=== PATIENT | female | born 1960 | race Caucasian/White ===

== ENCOUNTER 2017-07-29 11:54 | Emergency (ER) | payer OTHER ==
--- NOTE | 2017-07-29 14:53 | UC ---
Back Pain HPI - HPI Summary HPI Summary: Pain in R flank starting 5 days ago. Has tried massage, stretches, heat without relief. Denies hx of kidney stones or urinary symptoms. No recent injury, no prior surgery. - History of Current Complaint Chief Complaint: UCBackPain Stated Complaint: PAIN IN MIDDLE OF BACK Time Seen by Provider: 07/29/17 14:32 Hx Obtained From: Patient ?: No Onset/Duration: Gradual Onset, Lasting Days Timing: Constant Severity Initially: Moderate Severity Currently: Moderate Back Pain: Is Discrete @ Character: Sharp, Dull, Aching Aggravating Factor(s): Movement, Cough Alleviating Factor(s): Rest, Position Associated Signs And Symptoms: Positive: Negative - Allergies/Home Medications Allergies/Adverse Reactions: Allergies Allergy/AdvReac Type Severity Reaction Status Date / Time Bee Venom Allergy Severe Anaphylatic Verified 07/29/17 12:16 Sulfa Drugs AdvReac Intermediate Rash & Verified 07/29/17 12:16 Hives Grasses & Trees Allergy Intermediate Respiratory Uncoded 07/29/17 12:16 Congestion Raw Apples AdvReac Intermediate Laryngeal Uncoded 07/29/17 12:16 Edema Wheat AdvReac Intermediate Rash & Uncoded 07/29/17 12:16 Hives Home Medications: Home Medications FLUoxetine CAP* [Prozac CAP*] 1 cap PO DAILY 07/29/17 [History Confirmed ] Venlafaxine CAP (NF) [Effexor CAP (NF)] 07/29/17 [History] PMH/Surg Hx/FS Hx/Imm Hx Endocrine History: Diabetes Other Endocrine History: obesity Cardiovascular History: Hypertension Other GI/ History: lap band - Surgical History Surgical History: Yes Surgery Procedure, Year, and Place: D&C in 1995 and 2006; [place] Teeth Removed; Nodule removed from left clavicle (Benign) - Family History Known Family History: Positive: None - Social History Lives: With Family Alcohol Use: Occasionally Substance Use Type: None Smoking Status (MU): Never Smoked Tobacco - Immunization History Most Recent Influenza Vaccination: 2017 Review of Systems Constitutional: Negative Skin: Negative Eyes: Negative ENT: Negative Respiratory: Negative Cardiovascular: Negative Gastrointestinal: Negative Genitourinary: Negative Motor: Negative Neurovascular: Negative Musculoskeletal: Arthralgia, Decreased ROM Neurological: Negative Psychological: Negative Is Patient Immunocompromised?: No All Other Systems Reviewed And Are Negative: Yes Physical Exam Triage Information Reviewed: Yes Appearance: Pain Distress - mild -- positioning, Obese Vital Signs: Initial Vital Signs Temp 97.6 F 07/29/17 12:09 Pulse 76 07/29/17 12:09 Resp 14 07/29/17 12:09 BP 124/59 07/29/17 12:09 Pulse Ox 100 07/29/17 12:09 Vital Signs Reviewed: Yes Eye Exam: Normal Eyes: Positive: Conjunctiva Clear ENT Exam: Normal ENT: Positive: Normal ENT inspection, Hearing grossly normal, Pharynx normal, TMs normal. Negative: TM bulging Dental Exam: Normal Neck exam: Normal Neck: Positive: Supple, Nontender, No Lymphadenopathy Respiratory Exam: Normal Respiratory: Positive: Chest non-tender, Lungs clear, Normal breath sounds, No respiratory distress, No accessory muscle use Cardiovascular Exam: Normal Cardiovascular: Positive: RRR, No Murmur Abdomen Description: Negative: CVA Tenderness (R), CVA Tenderness (L) Musculoskeletal: Positive: Strength Intact, ROM Limited @ - back Neurological Exam: Normal, Other - normal DTRs BLE Neurological: Positive: Alert Psychological Exam: Normal Skin Exam: Normal Re-Evaluation - Re-Evaluation First Eval Re-Evaluation Time: 15:00 Change: Worse - Pain markedly worse, pt panting through it, states it's like "being punched in the back" Back Pain Course/Dx - Course Course Of Treatment: Discussed eval and possible CT scan in ED tonight, pt unsure if she wants to do this. Spoke at length about pros and cons, emphasized that she should be seen by her PCP within 2 days if she doesn't go to the ED. - Differential Dx/Diagnosis Differential Diagnosis/HQI/PQRI: Herniated Disc, Renal Colic, Strain, Sprain Provider Diagnoses: R flank pain. hematuria Discharge - Discharge Plan Condition: Stable Disposition: HOME Prescriptions: Carisoprodol TAB* [Soma TAB*] 350 mg PO BEDTIME PRN #7 tab MDD 1 PRN Reason: Pain Hydrocodone-Acetaminophen [Hydrocodone Bitartrate/AC] 1 tab PO QID PRN #10 tab MDD 4 PRN Reason: Pain Patient Education Materials: Flank Pain (ED) Forms: *Work Release Referrals: Dominique Deleon MD [Primary Care Provider] - Additional Instructions: As we discussed, I suspect a kidney stone or a muscular injury. If you decide to go to the emergency department, it may be beneficial because of the IV fluids and pain control. Please ensure you have a safe way to and from the ED. if you choose to go home, drink lots of fluids and follow up with Dr. Deleon's office within 2 days. Strain your urine to see if you pass a stone.
[2017-07-29 15:20] VITALS: BP 128/73
== END 2017-07-29 15:24 | disposition home or self-care (01) ==
LOC: UCEAST 11:54
DX: M54.9 Dorsalgia, unspecified (principal); R31.9 Hematuria, unspecified; E11.9 Type 2 diabetes mellitus without complications; I10 Essential (primary) hypertension; E66.9 Obesity, unspecified; Z98.84 Bariatric surgery status; Z88.2 Allergy status to sulfonamides
CPT/HCPCS: 81003; 87086; 99212; G0463

== ENCOUNTER 2017-07-29 15:56 | Emergency (ER) | payer OTHER ==
[2017-07-29] MEDS ORDERED: Ketorolac INJ* 30 MG/ML 1 ML VIAL IV PUSH ONE (19:03)
--- NOTE | 2017-07-29 19:04 | ED ---
GI/ HPI - HPI Summary HPI Summary: 57 female presents sent over from with complaints of right flank pain that began 5 days ago and has seemed to worsen over the past few days. Patient was at and sent here for rule out renal calculi. Patient states the pain is worse to touch and with certain position/movement. Denies urinary symptoms. Patient had a massage and states this did make the pain better. No known trauma or injury. No heavy lifting that she can relate it to. Denies fever/chills, nausea, vomiting and abdominal pain. No chest pain. States when the pain spasms and is at it's worse it takes her breath away. States pain is a dull ache however "Spasms" and gets worse randomly. Normal bowel movements. PMHx hypothyroid, HTN, depression and high cholesterol. No other complaints at this time. Pain does not radiate. Has been taking ibuprofen 400mg without relief, last does was this morning. Has not taken anything since. No vaginal complaints or discharge. - History of Current Complaint Chief Complaint: EDFlankPain Time Seen by Provider: 07/29/17 18:25 Stated Complaint: RIGHT FLANK PAIN COMING FROM Hx Obtained From: Patient Onset/Duration: Started Days Ago, Still Present Timing: Constant, Lasting Days Severity: Mild Current Severity: Mild Pain Intensity: 5 Location of Pain: Flank - right Pain Characteristics: Sharp, Dull, Cramping - spasming Associated Signs and Symptoms: Positive: Flank Pain - right Aggravating Factor(s): Movement, Liquids - touch Alleviating Factor(s): Rest, Position - Allergy/Home Medications Allergies/Adverse Reactions: Allergies Allergy/AdvReac Type Severity Reaction Status Date / Time Bee Venom Allergy Severe Anaphylatic Verified 07/29/17 12:16 Celecoxib [From Celebrex] Allergy Swelling Verified 07/29/17 16:09 Sulfa Drugs AdvReac Intermediate Rash & Verified 07/29/17 12:16 Hives Grasses & Trees Allergy Intermediate Respiratory Uncoded 07/29/17 12:16 Congestion Raw Apples AdvReac Intermediate Laryngeal Uncoded 07/29/17 12:16 Edema Wheat AdvReac Intermediate Rash & Uncoded 07/29/17 12:16 Hives PMH/Surg Hx/FS Hx/Imm Hx Endocrine/Hematology History: Reports: Hx Diabetes - Type 2 Diabetes Cardiovascular History: Reports: Hx Hypertension Respiratory History: Reports: Hx Sleep Apnea - current CPAP user, Other Respiratory Problems/Disorders - Allergic Rhinitis GI History: Reports: Hx Gastroesophageal Reflux Disease, Other GI Disorders - Constipation; Dyslipidemia; Thrombosed Hemorrhoids; Morbid Obesity Musculoskeletal History: Reports: Hx Orthopedic Injury - (left) fx distal fibula 11/2012 Denies: Hx Osteoporosis Sensory History: Reports: Hx Contacts or Glasses Opthamlomology History: Reports: Hx Contacts or Glasses Psychiatric History: Reports: Hx Depression - Cancer History Hx Chemotherapy: No Hx Radiation Therapy: No - Surgical History Surgery Procedure, Year, and Place: D&C in 1995 and 2006; [place] Teeth Removed; Nodule removed from left clavicle (Benign) - Immunization History Immunizations Up to Date: Yes Infectious Disease History: No Infectious Disease History: Denies: Traveled Outside the [place] in Last 30 Days - Family History Known Family History: Positive: None - Social History Alcohol Use: Occasionally Substance Use Type: Reports: None Smoking Status (MU): Never Smoked Tobacco Review of Systems Constitutional: Negative Cardiovascular: Negative Respiratory: Negative Positive: flank pain - right Skin: Negative All Other Systems Reviewed And Are Negative: Yes Physical Exam Triage Information Reviewed: Yes Vital Signs On Initial Exam: Initial Vitals Temp Pulse Resp BP Pulse Ox 98.5 F 72 18 111/98 99 07/29/17 16:07 07/29/17 16:07 07/29/17 16:07 07/29/17 16:07 07/29/17 16:07 Vital Signs Reviewed: Yes Appearance: Positive: Well-Appearing, Well-Nourished, Pain Distress - mild/ moderate Skin: Positive: Warm, Skin Color Reflects Adequate Perfusion, Dry, Other - ecchymosis to right flank noted, patient states this is from massage (happens frequently). Negative: Cold, Numb Head/Face: Positive: Normal Head/Face Inspection Neck: Positive: Supple, Nontender Respiratory/Lung Sounds: Positive: Clear to Auscultation, Breath Sounds Present. Negative: Rales, Rhonchi, Wheezes Cardiovascular: Positive: Normal, RRR, Pulses are Symmetrical in both Upper and Lower Extremities. Negative: Murmur, Rub Abdomen Description: Positive: Nontender, No Organomegaly, Soft, CVA Tenderness (R). Negative: Bruit, CVA Tenderness (L), Distended, Guarding, Peritoneal Signs Bowel Sounds: Positive: Present Pelvic Exam: Positive: external exam normal - per patient, deferred exam, asymptomatic Musculoskeletal: Positive: Normal, Strength/ROM Intact Neurological: Positive: Normal, Sensory/Motor Intact, Alert, Oriented to Person Place, Time - [place] Coma Scale Coma Scale Total: 15 Diagnostics - Vital Signs Vital Signs Temp Pulse Resp BP Pulse Ox 07/29/17 17:35 97.4 F 63 16 123/58 100 07/29/17 16:07 98.5 F 72 18 111/98 99 - Laboratory Result Diagrams: 07/29/17 19:00 07/29/17 19:00 Lab Statement: Any lab studies that have been ordered have been reviewed, and results considered in the medical decision making process. - CT abd/pelvis CT Interpretation: No Acute Changes - 1. NO HYDRONEPHROSIS OR NEPHROLITHIASIS. 2. SCATTERED DIVERTICULA OF THE DISTAL COLON. 3. STATUS POST GASTRIC BAND. 4. THERE IS MINIMAL CENTRILOBULAR NODULARITY OF THE LEFT LOWER LOBE SUGGESTIVE OF AN AIRWAY CENTERED INFLAMMATORY OR INFECTIOUS PROCESS. CT Interpretation Completed By: Radiologist - and myself Re-Evaluation - Re-Evaluation First Eval Re-Evaluation Time: 20:45 Change: Improved - had significant improvment after toradol GIGU Course/Dx - Course Course Of Treatment: Ct abd/pelvis obtained and negative for acute findings. patient was updated on findings and results, aware and understands. labs and urinalysis obtained. labs normal. U/A shows WBC, Leuk and bacteria suggesting UTI. Does have CVA tenderness and low grade temp highest 100F.given toradol and had significant relief. 08/18. will treat with UTI with macrobid pending urine culture. already prescribed pain medication, ibuprofen and muscle relaxer at pharmacy. Heat and rest. follow up pcp. aware of worsening signs and symptoms. increase fluid intake. aware of worsening signs and symptoms to watch out for. no other emergent concerns at this time. - Diagnoses Differential Diagnoses - Female: Pyelonephritis, Renal Calculi, Renal Colic, Urinary Tract Infection, Ureteral Calculi, Other - back pain, muscle strain, muscles spasm, Provider Diagnoses: UTI (urinary tract infection), Back pain, Muscle strain Discharge - Discharge Plan Condition: Stable Disposition: HOME Prescriptions: Nitrofurantoin Monohyd Macro [Macrobid] 100 mg PO BID #13 cap Patient Education Materials: Urinary Tract Infection in Women (DC), Low Back Strain (ED), Acute Low Back Pain (ED) Referrals: Dominique Deleon MD [Primary Care Provider] - Additional Instructions: Take prescribed medication as directed to help with UTI/Kidney infection. IF medication is not sufficient pending urine culture received in a few days you will receive phone call. Muscle relaxer along with ibuprofen for pain, inflammation and spasms along with pain medication as previously prescribed at at pharmacy already. Apply heating pad. Rest. Gently massage if helps. Increase fluid intake. Any new or worsening symptoms please seek medical attention promptly, as discussed. Follow up with PCP.
[2017-07-29 19:23] LABS: ABS Basophils 0 10^3/ul (0-0.2); ABS Eosinophils 0.3 10^3/ul (0-0.6); ABS Lymphocytes 2.2 10^3/ul (1.0-4.8); ABS Monocytes 0.8 10^3/ul (0-0.8); ABS Neutrophils 4.6 10^3/ul (1.5-7.7); ABS Nucleated RBC 0 10^3/ul; Eosinophil % 3.9 % (0-6); Hematocrit 42 % (35-47); Hemoglobin 14.1 g/dl (12.0-16.0); Lymphocyte % 27.6 % (25-47); Mean Corpuscular HGB Conc 33 g/dl (31-36); Mean Corpuscular Hemoglobin 29 pg (27-31); Mean Corpuscular Volume 86 fL (80-97); Mean Platelet Volume 7 um3 (7.4-10.4); Nucleated Red Blood Cells % 0.1; Platelet Count 350 10^3/ul (150-450); Red Blood Count 4.95 10^6/ul (4.0-5.4); Red Cell Distribution Width 14 % (10.5-15); White Blood Count 7.9 10^3/ul (3.5-10.8)
[2017-07-29 19:34] LABS: EGFR Non-African American 74.2 (>60)
[2017-07-29 19:38] LABS: Urine Appearance Cloudy; Urine Blood Negative (Negative); Urine Color Yellow; Urine Ketones Trace (Negative); Urine Protein Negative (Negative); Urine Specific Gravity 1.027 (1.010-1.030); Urine Urobilinogen Negative (Negative)
--- NOTE | 2017-07-29 19:45 | RAD ---
CLINICAL HISTORY: Right flank pain COMPARISON: None TECHNIQUE: Multiple contiguous axial CT scans were obtained of the abdomen and pelvis, without intravenous contrast enhancement. Coronal and sagittal multiplanar reformations are submitted for review. Oral contrast was not administered. FINDINGS: The study is limited by the lack of intravenous contrast. This limits evaluation of the solid organs and vasculature. LUNG BASES: There is centrilobular nodularity within the left lower lobe. LIVER: The liver is normal in shape, size, contour, and attenuation. BILE DUCTS: There is no intrahepatic or extrahepatic biliary dilatation. GALLBLADDER: The gallbladder is normal, without pericholecystic inflammatory change. PANCREAS: The pancreas is normal, without mass or ductal dilatation. SPLEEN: Normal in size and appearance. UPPER GI TRACT: Evaluation of the gastrointestinal tract is limited by incomplete gastric distention. An inflatable gastric band is noted. SMALL BOWEL AND MESENTERY: The small bowel is normal in contour, course, and caliber. There is no obstruction or dilatation. COLON: There is scattered diverticula of the distal colon. There is a tubular, vermiform, hollow viscus that is blind ending, and originates from the cecum, consistent with a normal appendix. There is no periappendiceal inflammatory change. This is best seen on axial images 112 through 121. ADRENALS: Normal bilaterally. KIDNEYS: A simple parapelvic renal cyst is noted on the right.. There is no hydronephrosis or nephrolithiasis. BLADDER: The bladder is collapsed and is not well evaluated. PELVIC ORGANS: The uterus and adnexa are grossly normal for technique. AORTA: The aorta is normal. IVC: Unremarkable LYMPH NODES: There is no lymphadenopathy by size criteria. ABDOMINAL WALL: There is no evidence for abdominal wall hernia. BONES AND SOFT TISSUES: Mild degenerative changes are noted of the spine OTHER: None IMPRESSION: 1. NO HYDRONEPHROSIS OR NEPHROLITHIASIS. 2. SCATTERED DIVERTICULA OF THE DISTAL COLON. 3. STATUS POST GASTRIC BAND. 4. THERE IS MINIMAL CENTRILOBULAR NODULARITY OF THE LEFT LOWER LOBE SUGGESTIVE OF AN AIRWAY CENTERED INFLAMMATORY OR INFECTIOUS PROCESS.
[2017-07-29] MEDS ORDERED: Orphenadrine Citrate IV* 30 MG/ML 2 ML VIAL IV ONE (20:59)
[2017-07-29] MEDS ORDERED: Nitrofurantoin Macrocrystals* 100 MG CAP PO ONE (21:23)
[2017-07-29] MEDS ORDERED: Methocarbamol TAB* 500 MG PO ONE ×2 (21:25)
[2017-07-29 21:47] VITALS: BP 000/00
== END 2017-07-29 21:45 | disposition home or self-care (01) ==
LOC: ED 15:56
DX: R10.84 Generalized abdominal pain (principal); N39.0 Urinary tract infection, site not specified; M54.9 Dorsalgia, unspecified; S39.011A Strain of muscle, fascia and tendon of abdomen, initial encounter; X58.XXXA Exposure to other specified factors, initial encounter; Y92.9 Unspecified place or not applicable
CPT/HCPCS: 36415; 74176; 80053; 81003; 81015; 83605; 85025; 96374; 96375; 99282; A9270-GY; J1885